=== PATIENT | male | born 1965 | race African-American/Black ===

== ENCOUNTER 2020-01-20 16:12 | Inpatient (IN) ==
[2020-01-20] MEDS ORDERED: ONDANSETRON 4 MG/2 ML VIAL ONE (18:30)
[2020-01-20] MEDS ORDERED: HYDROmorphone 2 MG/1 ML VIAL ONE (18:31)
[2020-01-20] MEDS ORDERED: HYDROmorphone 2 MG/1 ML VIAL IV STA (18:32)
[2020-01-20] MEDS ORDERED: ONDANSETRON 4 MG/2 ML VIAL IV STA (18:32)
[2020-01-20] MEDS ORDERED: FLUCONAZOLE INJ 100 MG in IV BAG 1 EACH IV ONE (18:32)
[2020-01-20] MEDS ORDERED: SODIUM CHLORIDE 0.9% 1,000 ML IV STA (18:32)
[2020-01-20 18:58] LABS: Basophils % 0.5 % (0.0-0.8); Eosinophils % 0.5 % (0.00-10.9); Hemoglobin 12.8 GM/DL (14.0-18.0); Immature Granulocytes Absolute 0.08 #; Lymphocytes # 0.3 10*3/uL (1.4-4.0); Lymphocytes % 3.5 % (21.2-54.2); Mean Corpuscular HGB Conc 33.7 GM/DL (32-36); Mean Corpuscular Volume 96.9 FL (87-102); Mean Platelet Volume 7.8 FL (9.6-12.0); Neutrophils % 81.5 % (38.7-73.9); Platelet Count 448 T/CUMM (130-400); Red Blood Count 3.92 MC/CUMM (3.8-5.5); White Blood Count 7.9 T/CUMM (4-12)
[2020-01-20 19:18] LABS: Alanine Aminotransferase 20 U/L (16-61); Alkaline Phosphatase 101 U/L (45-117); Amylase 120 U/L (25-115); Aspartate Amino Transferase 14 U/L (0-37); Bilirubin,Total < 0.39 MG/DL (0.2-1.0); Blood Urea Nitrogen 28 MG/DL (7-18); Calcium 10.1 MG/DL (8.5-10.1); Estimated Glom Filtration Rate 82 ML/MIN; Glucose 117 MG/DL (74-106); Osmolality,Calculated 253.8 MOS/KG (273-304); Total Protein 8.2 G/DL (6.4-8.3)
[2020-01-20 20:08] LABS: Band Neutrophils 2 % (0-10); Eosinophils 1 % (0-10); Lymphocytes 8 % (20-55); Myelocytes 1 %; Segmented Neutrophils 73 % (50-85); Total Cells Counted 100
[2020-01-20 20:09] LABS: Anisocytosis Slight; Hypochromasia 2+; Macrocytosis 1+
[2020-01-20 20:10] LABS: Toxic Granulation 1+
[2020-01-20 20:11] LABS: Platelet Estimate Normal
[2020-01-20] MEDS ORDERED: PHENOL 1.4% THROAT SPRAY 177 ML BOTTLE PO PRN (20:35)
[2020-01-20] MEDS: SODIUM CHLORIDE 0.9% 1,000 ML IV SCH (21:05)
[2020-01-20] MEDS: cefTRIAXone 1,000 MG in SYRINGE 1 EACH IV SCH (21:15)
[2020-01-20] MEDS: POTASSIUM CHLORIDE RIDER 10 MEQ in PREMIX 1 EACH IV PRN ×3 (21:31→23:50)
[2020-01-20 21:41] LABS: Calcium 8.7 MG/DL (8.5-10.1); Osmolality,Calculated 261.1 MOS/KG (273-304)
[2020-01-20 22:42] LABS: Apearance,Urine CLOUDY (Clear); Bilirubin,Urine Negative (Negative); Blood, Urine Negative (Negative); Glucose,Urine (UA) Negative (Negative); Hyaline Casts,Urine 56 /LPF (0-3); Ketones,Urine 5 mg/dL (Negative); Mucus,Urine Occasional /LPF (Occasional); Nitrite,Urine Negative (Negative); Protein,Urine Negative; RBC,Urine 1 /HPF (0-4); Squamous Epithelial Cell,Urine Occasional /HPF (0-10); Urine Color Yellow (Yellow); Urine Specific Gravity 1.017 (1.001-1.035); Urine Urobilinogen < 2.0 EU/DL (0.2-1.0); WBC,Urine 1 /HPF (0-6)
[2020-01-21] MEDS: POTASSIUM CHLORIDE RIDER 10 MEQ in PREMIX 1 EACH IV PRN (00:51)
[2020-01-21 01:03] LABS: Calcium 8.6 MG/DL (8.5-10.1); Osmolality,Calculated 254.5 MOS/KG (273-304)
[2020-01-21 05:24] LABS: Basophils % 0.5 % (0.0-0.8); Eosinophils # 0.1 10*3/uL (0.0-0.87); Eosinophils % 1.4 % (0.00-10.9); Hematocrit 29.7 VOL% (42.0-52.0); Immature Granulocytes % 1.1 %; Immature Granulocytes Absolute 0.05 #; Lymphocytes # 0.3 10*3/uL (1.4-4.0); Lymphocytes % 7.4 % (21.2-54.2); Mean Corpuscular HGB Conc 33.7 GM/DL (32-36); Mean Corpuscular Volume 97.7 FL (87-102); Monocytes % 20.3 % (1.7-12.7); Neutrophils % 69.3 % (38.7-73.9); Platelet Count 372 T/CUMM (130-400); Red Blood Count 3.04 MC/CUMM (3.8-5.5); Red Cell Distribution Width 12.2 % (9.3-17.3); White Blood Count 4.4 T/CUMM (4-12)
[2020-01-21 05:45] LABS: Band Neutrophils 1 % (0-10); Eosinophils 1 % (0-10); Lymphocytes 6 % (20-55); Segmented Neutrophils 73 % (50-85); Total Cells Counted 100
[2020-01-21 05:46] LABS: Hypochromasia 1+; Platelet Estimate Adequate
[2020-01-21 05:54] LABS: Calcium 8.5 MG/DL (8.5-10.1); Osmolality,Calculated 260.9 MOS/KG (273-304)
[2020-01-21] MEDS: SODIUM CHLORIDE 0.9% 1,000 ML IV SCH ×2 (08:25→19:50)
[2020-01-21] MEDS ORDERED: amLODIPine 5 MG TABLET PO SCH (09:00)
[2020-01-21 09:04] LABS: Calcium 8.4 MG/DL (8.5-10.1); Osmolality,Calculated 258.1 MOS/KG (273-304)
[2020-01-21] MEDS: CETIRIZINE 10 MG TABLET PO SCH (10:24)
[2020-01-21] MEDS: ASPIRIN EC 81 MG TABLET PO SCH (10:24)
[2020-01-21 14:19] LABS: Calcium 8.4 MG/DL (8.5-10.1); Osmolality,Calculated 258.9 MOS/KG (273-304)
[2020-01-21 17:40] LABS: Calcium 8.2 MG/DL (8.5-10.1); Osmolality,Calculated 256.1 MOS/KG (273-304)
[2020-01-21] MEDS: cefTRIAXone 1,000 MG in SYRINGE 1 EACH IV SCH (20:29)
[2020-01-21] MEDS: FLUCONAZOLE INJ 100 MG in IV BAG 1 EACH IV SCH (20:30)
[2020-01-22 05:33] LABS: Basophils % 0.7 % (0.0-0.8); Eosinophils # 0.2 10*3/uL (0.0-0.87); Eosinophils % 2.5 % (0.00-10.9); Hematocrit 30.6 VOL% (42.0-52.0); Hemoglobin 9.8 GM/DL (14.0-18.0); Immature Granulocytes % 0.8 %; Immature Granulocytes Absolute 0.05 #; Lymphocytes # 0.3 10*3/uL (1.4-4.0); Lymphocytes % 4.6 % (21.2-54.2); Mean Corpuscular Volume 100.7 FL (87-102); Neutrophils % 74.4 % (38.7-73.9); Platelet Count 364 T/CUMM (130-400); Red Blood Count 3.04 MC/CUMM (3.8-5.5); Red Cell Distribution Width 11.9 % (9.3-17.3); White Blood Count 5.9 T/CUMM (4-12)
[2020-01-22 05:43] LABS: INR 1.5; PT Patient Result 15.7 SECS (9.6-12.2)
[2020-01-22 06:09] LABS: Band Neutrophils 8 % (0-10); Eosinophils 4 % (0-10); Lymphocytes 2 % (20-55); Segmented Neutrophils 73 % (50-85); Total Cells Counted 100
[2020-01-22 06:10] LABS: Anisocytosis 1+; Hypochromasia Slight; Macrocytosis Slight; Platelet Estimate Normal
[2020-01-22 07:00] LABS: Alanine Aminotransferase 18 U/L (16-61); Albumin 2.4 G/DL (3.4-5.0); Alkaline Phosphatase 74 U/L (45-117); Aspartate Amino Transferase 16 U/L (0-37); Bilirubin,Total < 0.39 MG/DL (0.2-1.0); Blood Urea Nitrogen 7 MG/DL (7-18); Estimated Glom Filtration Rate 144 ML/MIN; Glucose 78 MG/DL (74-106); Osmolality,Calculated 262.4 MOS/KG (273-304); Total Protein 5.7 G/DL (6.4-8.3)
[2020-01-22] MEDS: SODIUM CHLORIDE 0.9% 1,000 ML IV SCH ×2 (07:14→17:47)
[2020-01-22] MEDS ORDERED: LACTATED RINGERS 1,000 ML IV SCH (08:00)
[2020-01-22] MEDS ORDERED: propofoL 200 MG/20 ML VIAL IV ONE (09:00)
[2020-01-22] MEDS ORDERED: LIDOCAINE 2% 5 ML VIAL ONE (09:00)
[2020-01-22] MEDS: ASPIRIN EC 81 MG TABLET PO SCH (09:45)
[2020-01-22] MEDS: CETIRIZINE 10 MG TABLET PO SCH (09:45)
[2020-01-22] MEDS: POTASSIUM CHLORIDE RIDER 10 MEQ in PREMIX 1 EACH IV PRN ×3 (17:43→20:31)
[2020-01-22] MEDS: MORPHINE 4 MG/1 ML VIAL IV PRN (17:44)
[2020-01-22] MEDS: FLUCONAZOLE INJ 100 MG in IV BAG 1 EACH IV SCH (20:27)
[2020-01-22] MEDS: cefTRIAXone 1,000 MG in SYRINGE 1 EACH IV SCH (20:28)
[2020-01-23 06:34] LABS: Calcium 8.2 MG/DL (8.5-10.1); Osmolality,Calculated 262.2 MOS/KG (273-304); Prealbumin 9.6 MG/DL (20-40)
[2020-01-23] MEDS: POTASSIUM CHLORIDE RIDER 10 MEQ in PREMIX 1 EACH IV PRN ×5 (07:31→12:16)
[2020-01-23] MEDS: ASPIRIN EC 81 MG TABLET PO SCH (08:49)
[2020-01-23] MEDS: CETIRIZINE 10 MG TABLET PO SCH (08:51)
[2020-01-23] MEDS ORDERED: MAGNESIUM SULF RIDER 4 GM in PREMIX 1 EACH IV ONE (12:46)
[2020-01-23] MEDS: SODIUM CHLORIDE 0.9% 1,000 ML IV SCH (16:42)
[2020-01-23] MEDS: cefTRIAXone 1,000 MG in SYRINGE 1 EACH IV SCH (20:20)
[2020-01-24] MEDS: CETIRIZINE 10 MG TABLET PO SCH (08:58)
[2020-01-24] MEDS: ASPIRIN EC 81 MG TABLET PO SCH (08:58)
[2020-01-24] MEDS: cefTRIAXone 1,000 MG in SYRINGE 1 EACH IV SCH (20:27)
[2020-01-24] MEDS: MORPHINE 4 MG/1 ML VIAL IV PRN (20:27)
[2020-01-25] MEDS: ASPIRIN EC 81 MG TABLET PO SCH (08:56)
[2020-01-25] MEDS: CETIRIZINE 10 MG TABLET PO SCH (08:57)
[2020-01-25] MEDS ORDERED: MAGNESIUM SULF RIDER 4 GM in PREMIX 1 EACH IV PRN (09:14)
[2020-01-25] MEDS ORDERED: MAGNESIUM SULF RIDER 2 GM in PREMIX 1 EACH IV PRN (09:14)
[2020-01-25 09:16] LABS: Basophils % 0.5 % (0.0-0.8); Eosinophils # 0.2 10*3/uL (0.0-0.87); Hemoglobin 9.3 GM/DL (14.0-18.0); Immature Granulocytes % 0.5 %; Immature Granulocytes Absolute 0.04 #; Lymphocytes # 0.3 10*3/uL (1.4-4.0); Lymphocytes % 3.9 % (21.2-54.2); Mean Corpuscular HGB Conc 32.1 GM/DL (32-36); Mean Corpuscular Volume 101.8 FL (87-102); Mean Platelet Volume 7.8 FL (9.6-12.0); Monocytes % 9.3 % (1.7-12.7); Neutrophils % 82.8 % (38.7-73.9); Platelet Count 332 T/CUMM (130-400); Red Blood Count 2.85 MC/CUMM (3.8-5.5); Red Cell Distribution Width 12.4 % (9.3-17.3); White Blood Count 7.9 T/CUMM (4-12)
[2020-01-25 09:39] LABS: Eosinophils 5 % (0-10); Hypochromasia 1+; Lymphocytes 4 % (20-55); Platelet Estimate Adequate; Segmented Neutrophils 85 % (50-85); Total Cells Counted 100
[2020-01-25 09:40] LABS: Macrocytosis Slight
[2020-01-25 09:41] LABS: Calcium 8.2 MG/DL (8.5-10.1); Osmolality,Calculated 264.2 MOS/KG (273-304)
[2020-01-25] MEDS: cefTRIAXone 1,000 MG in SYRINGE 1 EACH IV SCH (20:45)
[2020-01-26 05:48] LABS: Calcium 8.5 MG/DL (8.5-10.1); Osmolality,Calculated 257.7 MOS/KG (273-304)
[2020-01-26] MEDS ORDERED: MAGNESIUM SULF RIDER 2 GM in PREMIX 1 EACH IV ONE (09:25)
[2020-01-26] MEDS: ASPIRIN EC 81 MG TABLET PO SCH (10:24)
[2020-01-26] MEDS: CETIRIZINE 10 MG TABLET PO SCH (10:25)
[2020-01-26 14:12] VITALS: BP 121/62
== END 2020-01-26 14:06 | disposition home or self-care (01) | DRG 115 ==
LOC: N.ED 16:12 → N.EDINP 19:53 → SUPCPDRO 19:53 → N.4E 20:21
PROVIDERS: ADMIT Internal Medicine; ATTEND Internal Medicine
PROC: EGDWPEG (ICD-10-PCS; 2020-01-22 10:35)

== ENCOUNTER 2022-01-06 14:54 | Inpatient (IN) ==
[2022-01-06 18:32] LABS: Basophils % 0.2 % (0.0-0.8); Eosinophils % 0.5 % (0.00-10.9); Hematocrit 36.9 VOL% (42.0-52.0); Immature Granulocytes % 0.5 %; Immature Granulocytes Absolute 0.04 #; Lymphocytes # 0.4 10*3/uL (1.4-4.0); Lymphocytes % 4.4 % (21.2-54.2); Mean Corpuscular HGB Conc 35.2 GM/DL (32-36); Mean Corpuscular Volume 98.7 FL (87-102); Mean Platelet Volume 8.2 FL (9.6-12.0); Monocytes % 9.1 % (1.7-12.7); Neutrophils % 85.3 % (38.7-73.9); Platelet Count 258 T/CUMM (130-400); Red Blood Count 3.74 MC/CUMM (3.8-5.5); Red Cell Distribution Width 11.8 % (9.3-17.3); White Blood Count 8.3 T/CUMM (4-12)
[2022-01-06] MEDS ORDERED: SODIUM CHLORIDE 0.9% 1,000 ML IV STA (18:37)
[2022-01-06] MEDS ORDERED: MORPHINE 2 MG/1 ML SYRINGE IV STA (18:39)
[2022-01-06] MEDS ORDERED: ONDANSETRON 4 MG/2 ML VIAL IV ONE (18:39)
[2022-01-06 18:55] LABS: Albumin 3.5 G/DL (3.4-5.0); Bilirubin,Total 0.5 MG/DL (0.20-1.00); Calcium 9.2 MG/DL (8.5-10.1); Osmolality,Calculated 235.5 MOS/KG (273-304); Potassium 4.2 MMOL/L (3.5-5.1); Total Protein 7.2 G/DL (6.4-8.2)
[2022-01-06 19:01] LABS: Eosinophils 2 % (0-10); Lymphocytes 4 % (20-55); Segmented Neutrophils 89 % (50-85); Total Cells Counted 100
[2022-01-06 19:10] LABS: Burr Cells Slight; Platelet Estimate Adequate
[2022-01-06] MEDS ORDERED: ACETAMINOPHEN 325 MG TABLET PO PRN (19:44)
[2022-01-06] MEDS ORDERED: hydrALAZINE 20 MG/1 ML VIAL IV PRN (19:44)
[2022-01-06] MEDS ORDERED: ALUMINUM/MAGNES/SIMETH MAX STR 30 ML UDCUP PO PRN (19:44)
[2022-01-06] MEDS ORDERED: BISACODYL 5 MG TABLET PO PRN (19:44)
[2022-01-06] MEDS ORDERED: DOCUSATE SODIUM 100 MG CAPSULE PO PRN (19:44)
[2022-01-06] MEDS ORDERED: MORPHINE 2 MG/1 ML SYRINGE IV PRN (19:44)
[2022-01-06] MEDS ORDERED: GLUCAGON 1 MG VIAL IM PRN (19:44)
[2022-01-06] MEDS ORDERED: DEXTROSE 10% 250 ML BAG IV PRN (19:44)
[2022-01-06] MEDS ORDERED: ONDANSETRON 4 MG/2 ML VIAL IV PRN (19:44)
[2022-01-06] MEDS: SODIUM CHLORIDE 0.9% 1,000 ML IV SCH (21:00)
[2022-01-06 21:30] LABS: Bilirubin,Urine Negative (Negative); Blood, Urine Negative (Negative); Glucose,Urine (UA) Negative (Negative); Ketones,Urine 20 mg/dL (Negative); Mucus,Urine Occasional /LPF (Occasional); Nitrite,Urine Negative (Negative); Protein,Urine Negative; RBC,Urine <1 /HPF (0-4); Squamous Epithelial Cell,Urine Occasional /HPF (0-10); Urine Appearance Slightly Hazy (Clear); Urine Color Yellow (Yellow); Urine Specific Gravity 1.012 (1.001-1.035); Urine Urobilinogen < 2.0 EU/DL (<2.0)
[2022-01-06] MEDS: NICOTINE 21 MG/24 HR PATCH TRANSDERM PRN (21:32)
[2022-01-06 21:45] LABS: Barbiturates Screen,Urine Negative (Negative); Benzodiazepines Screen,Urine Negative (Negative); Cannabinoid Screen,Urine Positive (Negative); Opiate Screen,Urine Positive (Negative); Phencyclidine Screen,Urine Negative (Negative)
[2022-01-07 03:40] LABS: Basophils % 0.6 % (0.0-0.8); Eosinophils # 0.1 10*3/uL (0.0-0.87); Hematocrit 33.3 VOL% (42.0-52.0); Hemoglobin 11.6 GM/DL (14.0-18.0); Immature Granulocytes % 0.6 %; Immature Granulocytes Absolute 0.04 #; Lymphocytes # 0.4 10*3/uL (1.4-4.0); Mean Corpuscular HGB Conc 34.8 GM/DL (32-36); Mean Corpuscular Volume 99.4 FL (87-102); Mean Platelet Volume 8.1 FL (9.6-12.0); Monocytes % 11.8 % (1.7-12.7); Platelet Count 235 T/CUMM (130-400); Red Blood Count 3.35 MC/CUMM (3.8-5.5); Red Cell Distribution Width 11.8 % (9.3-17.3); White Blood Count 6.9 T/CUMM (4-12)
[2022-01-07 04:12] LABS: Calcium 8.2 MG/DL (8.5-10.1); Osmolality,Calculated 251.2 MOS/KG (273-304); Potassium 3.7 MMOL/L (3.5-5.1); Thyroid Stimulating Hormone 0.469 uIU/ml (0.358-3.74)
[2022-01-07 04:26] LABS: Calcium 8.2 MG/DL (8.5-10.1); Osmolality,Calculated 249.4 MOS/KG (273-304); Potassium 3.6 MMOL/L (3.5-5.1); Risk Ratio 2.38
[2022-01-07] MEDS: SODIUM CHLORIDE 0.9% 1,000 ML IV SCH ×3 (07:22→22:16)
[2022-01-07] MEDS ORDERED: MAGNESIUM SULF RIDER 2 GM/50 ML PREMIX IV ONE (09:00)
[2022-01-07] MEDS: PANTOPRAZOLE 40 MG TABLET PO SCH (09:33)
[2022-01-07] MEDS: ENOXAPARIN 40 MG/0.4 ML SYRINGE SUBCUT SCH (09:33)
[2022-01-07] MEDS ORDERED: ALBUTEROL 2.5 MG/3 ML NEB RESP TX PRN (11:53)
[2022-01-07] MEDS: CETIRIZINE 10 MG TABLET PO SCH (12:15)
[2022-01-07] MEDS: predniSONE 20 MG TABLET PO SCH ×2 (12:15→20:27)
[2022-01-07] MEDS: METOPROLOL TARTRATE 25 MG TABLET PO SCH (12:15)
[2022-01-07] MEDS: POTASSIUM CHLORIDE 10 MEQ TABLET PO SCH (12:15)
[2022-01-07] MEDS: ASPIRIN EC 81 MG TABLET PO SCH (12:15)
[2022-01-07] MEDS: MELOXICAM 7.5 MG TABLET PO SCH (13:56)
[2022-01-07] MEDS: NICOTINE 21 MG/24 HR PATCH TRANSDERM PRN (20:32)
[2022-01-08] MEDS ORDERED: MORPHINE 4 MG/1 ML VIAL IV PRN (01:30)
[2022-01-08 02:47] VITALS: BP 128/72
[2022-01-08 04:22] LABS: Hematocrit 34.3 VOL% (42.0-52.0); Hemoglobin 11.8 GM/DL (14.0-18.0); Immature Granulocytes % 0.6 %; Immature Granulocytes Absolute 0.03 #; Lymphocytes # 0.2 10*3/uL (1.4-4.0); Lymphocytes % 3.6 % (21.2-54.2); Mean Corpuscular HGB Conc 34.4 GM/DL (32-36); Mean Platelet Volume 8.3 FL (9.6-12.0); Monocytes % 4.8 % (1.7-12.7); Platelet Count 262 T/CUMM (130-400); Red Blood Count 3.43 MC/CUMM (3.8-5.5); Red Cell Distribution Width 11.9 % (9.3-17.3)
[2022-01-08 04:34] LABS: Calcium 8.2 MG/DL (8.5-10.1); Osmolality,Calculated 260.7 MOS/KG (273-304); Potassium 3.8 MMOL/L (3.5-5.1)
[2022-01-08 04:47] LABS: Hypochromia Slight; Lymphocytes 5 % (20-55); Segmented Neutrophils 90 % (50-85); Total Cells Counted 100
[2022-01-08 04:48] LABS: Macrocytosis Slight; Platelet Estimate Normal
[2022-01-08] MEDS: SODIUM CHLORIDE 0.9% 1,000 ML IV SCH (06:39)
[2022-01-08] MEDS ORDERED: MAGNESIUM SULF RIDER 2 GM/50 ML PREMIX IV ONE (07:13)
[2022-01-08] MEDS: ENOXAPARIN 40 MG/0.4 ML SYRINGE SUBCUT SCH (08:29)
[2022-01-08] MEDS: MELOXICAM 7.5 MG TABLET PO SCH (08:30)
[2022-01-08] MEDS: CETIRIZINE 10 MG TABLET PO SCH (08:30)
[2022-01-08] MEDS: METOPROLOL TARTRATE 25 MG TABLET PO SCH (08:30)
[2022-01-08] MEDS: PANTOPRAZOLE 40 MG TABLET PO SCH (08:30)
[2022-01-08] MEDS: ASPIRIN EC 81 MG TABLET PO SCH (08:30)
[2022-01-08] MEDS: POTASSIUM CHLORIDE 10 MEQ TABLET PO SCH (08:30)
[2022-01-08] MEDS: predniSONE 20 MG TABLET PO SCH (08:30)
[2022-01-08] MEDS: NICOTINE 21 MG/24 HR PATCH TRANSDERM PRN (12:56)
== END 2022-01-08 13:40 | disposition home or self-care (01) | DRG 426 ==
LOC: N.ED 14:54 → N.EDINP 19:44 → N.CC 01-07 00:24
PROVIDERS: ADMIT Internal Medicine; ATTEND Internal Medicine

== ENCOUNTER 2022-04-06 19:26 | Observation (INO) ==
[2022-04-06] MEDS ORDERED: SODIUM CHLORIDE 0.9% 1,000 ML IV STA (19:59)
[2022-04-06 20:30] LABS: Albumin 3.9 G/DL (3.4-5.0); Bilirubin,Total 0.4 MG/DL (0.20-1.00); Calcium 9.1 MG/DL (8.5-10.1); Osmolality,Calculated 245.6 MOS/KG (273-304); Potassium 3.9 MMOL/L (3.5-5.1); Total Protein 7.3 G/DL (6.4-8.2)
[2022-04-06] MEDS ORDERED: PANTOPRAZOLE 40 MG VIAL IV STA (20:43)
[2022-04-06 21:06] LABS: Basophils % 0.6 % (0.0-0.8); Eosinophils # 0.1 10*3/uL (0.0-0.87); Hematocrit 37.2 VOL% (42.0-52.0); Immature Granulocytes % 0.3 %; Immature Granulocytes Absolute 0.02 #; Lymphocytes # 0.3 10*3/uL (1.4-4.0); Lymphocytes % 5.3 % (21.2-54.2); Mean Corpuscular HGB Conc 32.3 GM/DL (32-36); Mean Corpuscular Volume 88.8 FL (87-102); Mean Platelet Volume 9.1 FL (9.6-12.0); Monocytes # 0.6 10*3/uL (0.11-0.8); Monocytes % 9.8 % (1.7-12.7); Platelet Count 221 T/CUMM (130-400); Red Blood Count 4.19 MC/CUMM (3.8-5.5); Red Cell Distribution Width 15.8 % (9.3-17.3); White Blood Count 6.3 T/CUMM (4-12)
[2022-04-06] MEDS ORDERED: ACETAMINOPHEN 325 MG TABLET PO PRN (22:25)
[2022-04-06] MEDS ORDERED: ONDANSETRON 4 MG/2 ML VIAL IV PRN (22:25)
[2022-04-06] MEDS ORDERED: GLUCAGON 1 MG VIAL IM PRN (22:25)
[2022-04-06] MEDS ORDERED: DEXTROSE 10% 250 ML BAG IV PRN (22:36)
[2022-04-06] MEDS: ENOXAPARIN 40 MG/0.4 ML SYRINGE SUBCUT SCH (23:21)
[2022-04-06] MEDS: SODIUM CHLORIDE 0.9% 1,000 ML IV SCH (23:21)
[2022-04-07] MEDS ORDERED: POTASSIUM CHLORIDE RIDER 10 MEQ/100 ML PREMIX IV PRN (00:26)
[2022-04-07] MEDS ORDERED: MAGNESIUM SULF RIDER 2 GM/50 ML PREMIX IV PRN (00:26)
[2022-04-07] MEDS ORDERED: POTASSIUM CHLORIDE 20 MEQ TABLET PO PRN (00:26)
[2022-04-07] MEDS ORDERED: MAGNESIUM SULF RIDER 4 GM/100 ML PREMIX IV PRN (00:26)
[2022-04-07 06:17] LABS: Basophils % 0.6 % (0.0-0.8); Eosinophils # 0.1 10*3/uL (0.0-0.87); Hematocrit 37.6 VOL% (42.0-52.0); Hemoglobin 12.3 GM/DL (14.0-18.0); Immature Granulocytes % 0.3 %; Immature Granulocytes Absolute 0.02 #; Lymphocytes # 0.3 10*3/uL (1.4-4.0); Lymphocytes % 5.5 % (21.2-54.2); Mean Corpuscular HGB Conc 32.7 GM/DL (32-36); Mean Corpuscular Volume 87.6 FL (87-102); Mean Platelet Volume 8.5 FL (9.6-12.0); Monocytes # 0.6 10*3/uL (0.11-0.8); Monocytes % 9.7 % (1.7-12.7); Neutrophils % 82.9 % (38.7-73.9); Platelet Count 251 T/CUMM (130-400); Red Blood Count 4.29 MC/CUMM (3.8-5.5); Red Cell Distribution Width 15.2 % (9.3-17.3); White Blood Count 6.2 T/CUMM (4-12)
[2022-04-07 06:43] LABS: Albumin 3.5 G/DL (3.4-5.0); Bilirubin,Total 0.6 MG/DL (0.20-1.00); Calcium 8.8 MG/DL (8.5-10.1); Osmolality,Calculated 256.8 MOS/KG (273-304); Potassium 3.2 MMOL/L (3.5-5.1); Total Protein 6.8 G/DL (6.4-8.2)
[2022-04-07] MEDS: DOCUSATE SODIUM 100 MG CAPSULE PO SCH ×2 (09:20→20:30)
[2022-04-07] MEDS: PANTOPRAZOLE 40 MG VIAL IV SCH (09:20)
[2022-04-07] MEDS: POTASSIUM CHLORIDE RIDER 10 MEQ/100 ML PREMIX IV SCH ×3 (09:20→11:26)
[2022-04-07] MEDS: SODIUM CHLORIDE 0.9% 1,000 ML IV SCH ×2 (09:24→20:09)
[2022-04-07] MEDS: ENOXAPARIN 40 MG/0.4 ML SYRINGE SUBCUT SCH (20:30)
[2022-04-08] MEDS: SODIUM CHLORIDE 0.9% 1,000 ML IV SCH (06:12)
[2022-04-08] MEDS ORDERED: POTASSIUM CHLORIDE 20 MEQ TABLET PO ONE (10:45)
[2022-04-08] MEDS: DOCUSATE SODIUM 100 MG CAPSULE PO SCH (11:41)
[2022-04-08] MEDS: PANTOPRAZOLE 40 MG VIAL IV SCH (11:41)
[2022-04-08 12:13] VITALS: BP 139/97
== END 2022-04-08 14:30 | disposition home or self-care (01) ==
LOC: EDUNIT# → EDBD → N.EDINP 19:26 → N.ED 19:26 → SUATTDRO 23:37 → N.EDINP 04-07 00:35 → N.5E 04-07 01:03
PROVIDERS: ADMIT Internal Medicine; ATTEND Internal Medicine

== ENCOUNTER 2022-12-31 11:29 | Inpatient (IN) ==
[2022-12-31 14:55] LABS: Basophils % 0.4 % (0.0-0.8); Eosinophils % 0.4 % (0.00-10.9); Hematocrit 34.5 VOL% (42.0-52.0); Hemoglobin 11.5 GM/DL (14.0-18.0); Lymphocytes # 0.2 10*3/uL (1.4-4.0); Lymphocytes % 2.1 % (21.2-54.2); Mean Corpuscular HGB Conc 33.3 GM/DL (32-36); Mean Corpuscular Volume 87.6 FL (87-102); Mean Platelet Volume 8.5 FL (9.6-12.0); Monocytes # 0.7 10*3/uL (0.11-0.8); Monocytes % 7.4 % (1.7-12.7); Neutrophils % 89.5 % (38.7-73.9); Platelet Count 306 T/CUMM (130-400); Red Blood Count 3.94 MC/CUMM (3.8-5.5); Red Cell Distribution Width 16.6 % (9.3-17.3); White Blood Count 9.07 T/CUMM (4-12)
[2022-12-31 15:11] LABS: Bilirubin,Total 0.6 MG/DL (0.20-1.00); Calcium 9.8 MG/DL (8.5-10.1); Osmolality,Calculated 260.7 MOS/KG (273-304); Potassium 3.7 MMOL/L (3.5-5.1); Total Protein 7.3 G/DL (6.4-8.2)
[2022-12-31 15:23] LABS: Hypochromia 2+; Lymphocytes 1 % (20-55); Platelet Estimate Adequate; Total Cells Counted 100
[2022-12-31 15:24] LABS: Microcytosis Slight
[2022-12-31 17:33] LABS: Mucus,Urine Occasional /LPF (Occasional); RBC,Urine 2 /HPF (0-4); Squamous Epithelial Cell,Urine Occasional /HPF (0-10)
[2022-12-31 17:35] LABS: Glucose,Urine (UA) Negative (Negative); Protein,Urine Negative (Negative); Urine Appearance Clear (Clear); Urine Color Yellow (Yellow); Urine pH 8.5 (4.5-8.0)
[2022-12-31 17:36] LABS: Bilirubin,Urine Negative (Negative); Blood, Urine Negative (Negative); Ketones,Urine 15 mg/dL (Negative); Nitrite,Urine Negative (Negative); Urine Urobilinogen 0.2 eU/dL (<2.0)
[2022-12-31] MEDS ORDERED: ONDANSETRON 4 MG/2 ML VIAL IV PRN (19:23)
[2022-12-31] MEDS ORDERED: DOCUSATE SODIUM 100 MG CAPSULE PO PRN (19:23)
[2022-12-31] MEDS ORDERED: ACETAMINOPHEN 325 MG TABLET PO PRN (19:23)
[2022-12-31] MEDS ORDERED: SIMETHICONE CHEW 125 MG TABLET PO ONE (20:00)
[2022-12-31] MEDS: DEXTROSE 5% NACL 0.9% 1,000 ML IV SCH (23:03)
[2022-12-31] MEDS: HEPARIN 5,000 UNIT/1 ML VIAL SUBCUT SCH (23:05)
[2023-01-01 04:53] LABS: Basophils % 0.5 % (0.0-0.8); Eosinophils # 0.1 10*3/uL (0.0-0.87); Eosinophils % 1.1 % (0.00-10.9); Hematocrit 34.5 VOL% (42.0-52.0); Immature Granulocytes % 0.4 %; Immature Granulocytes Absolute 0.03 #; Lymphocytes # 0.2 10*3/uL (1.4-4.0); Lymphocytes % 2.6 % (21.2-54.2); Mean Corpuscular HGB Conc 31.9 GM/DL (32-36); Mean Corpuscular Volume 89.4 FL (87-102); Mean Platelet Volume 8.2 FL (9.6-12.0); Monocytes # 0.5 10*3/uL (0.11-0.8); Monocytes % 7.1 % (1.7-12.7); Neutrophils % 88.3 % (38.7-73.9); Platelet Count 298 T/CUMM (130-400); Red Blood Count 3.86 MC/CUMM (3.8-5.5); Red Cell Distribution Width 16.8 % (9.3-17.3); White Blood Count 7.61 T/CUMM (4-12)
[2023-01-01 05:13] LABS: Albumin 3.6 G/DL (3.4-5.0); Bilirubin,Total 0.8 MG/DL (0.20-1.00); Calcium 8.9 MG/DL (8.5-10.1); Osmolality,Calculated 256.8 MOS/KG (273-304); Potassium 3.3 MMOL/L (3.5-5.1)
[2023-01-01 05:32] LABS: Band Neutrophils 1 % (0-10); Lymphocytes 3 % (20-55); Platelet Estimate Adequate; Total Cells Counted 100
[2023-01-01 05:33] LABS: Anisocytosis Slight
[2023-01-01] MEDS ORDERED: POTASSIUM CHLORIDE RIDER 10 MEQ/100 ML PREMIX IV PRN (05:38)
[2023-01-01] MEDS ORDERED: POTASSIUM BICARB EFFERVESCENT 20 MEQ TAB.EFF PO ONE (08:54)
[2023-01-01] MEDS ORDERED: PANTOPRAZOLE 40 MG VIAL IV SCH (09:00)
[2023-01-01] MEDS: HEPARIN 5,000 UNIT/1 ML VIAL SUBCUT SCH ×2 (10:27→21:47)
[2023-01-01 10:37] LABS: Phosphorous 3.3 MG/DL (2.5-4.9)
[2023-01-01] MEDS: DEXTROSE 5% NACL 0.9% 1,000 ML IV SCH (17:32)
[2023-01-01] MEDS: PANTOPRAZOLE 40 MG VIAL IV SCH (21:01)
[2023-01-02 04:46] LABS: Basophils % 0.6 % (0.0-0.8); Eosinophils # 0.1 10*3/uL (0.0-0.87); Eosinophils % 1.7 % (0.00-10.9); Hematocrit 31.2 VOL% (42.0-52.0); Hemoglobin 10.3 GM/DL (14.0-18.0); Immature Granulocytes % 0.1 %; Immature Granulocytes Absolute 0.01 #; Lymphocytes # 0.2 10*3/uL (1.4-4.0); Lymphocytes % 3.1 % (21.2-54.2); Mean Corpuscular Volume 87.4 FL (87-102); Mean Platelet Volume 8.2 FL (9.6-12.0); Monocytes # 0.6 10*3/uL (0.11-0.8); Monocytes % 8.5 % (1.7-12.7); Platelet Count 263 T/CUMM (130-400); Red Blood Count 3.57 MC/CUMM (3.8-5.5); Red Cell Distribution Width 16.2 % (9.3-17.3); White Blood Count 7.03 T/CUMM (4-12)
[2023-01-02 05:14] LABS: Eosinophils 3 % (0-10); Hypochromia Slight; Lymphocytes 4 % (20-55); Platelet Estimate Increased; Total Cells Counted 100
[2023-01-02 05:17] LABS: Calcium 8.6 MG/DL (8.5-10.1); Osmolality,Calculated 251.2 MOS/KG (273-304); Potassium 3.6 MMOL/L (3.5-5.1)
[2023-01-02] MEDS: DEXTROSE 5% NACL 0.9% 1,000 ML IV SCH ×2 (06:03→21:17)
[2023-01-02] MEDS: LACTATED RINGERS 1,000 ML IV SCH (08:17)
[2023-01-02] MEDS ORDERED: MIDAZOLAM 2 MG/2 ML VIAL ONE (08:34)
[2023-01-02] MEDS ORDERED: DEXAMETHASONE 4 MG/1 ML VIAL ONE (08:40)
[2023-01-02] MEDS ORDERED: propofoL 200 MG/20 ML VIAL IV ONE (08:41)
[2023-01-02] MEDS ORDERED: LIDOCAINE 2% 5 ML VIAL ONE (08:41)
[2023-01-02] MEDS ORDERED: methylPREDNISolone SOD SUC 125 MG/2 ML VIAL ONE (08:49)
[2023-01-02] MEDS ORDERED: KETAMINE 500 MG/10 ML VIAL ONE (09:07)
[2023-01-02] MEDS: HEPARIN 5,000 UNIT/1 ML VIAL SUBCUT SCH ×2 (10:39→21:08)
[2023-01-02] MEDS: PANTOPRAZOLE 40 MG VIAL IV SCH ×2 (10:40→21:59)
[2023-01-02] MEDS ORDERED: MAGNESIUM SULF RIDER 2 GM/50 ML PREMIX IV ONE (11:48)
[2023-01-02] MEDS: BENZOCAINE/MENTHOL LOZENGE 18/BOX PO PRN ×2 (12:00→14:00)
[2023-01-02] MEDS: NICOTINE 21 MG/24 HR PATCH TRANSDERM PRN (15:18)
[2023-01-02] MEDS ORDERED: POLYETHYLENE GLYCOL POWDER 17 GM PACK PO PRN (18:17)
[2023-01-02] MEDS ORDERED: CALCIUM CARBONATE CHEW 500 MG TABLET PO PRN (18:18)
[2023-01-02] MEDS ORDERED: POLYETHYLENE GLYCOL POWDER 17 GM PACK PO ONE (18:18)
[2023-01-03] MEDS: ZALEPLON 5 MG CAPSULE PO PRN ×2 (00:32→20:57)
[2023-01-03 05:15] LABS: Hematocrit 29.8 VOL% (42.0-52.0); Hemoglobin 9.8 GM/DL (14.0-18.0); Immature Granulocytes % 0.2 %; Immature Granulocytes Absolute 0.01 #; Lymphocytes # 0.2 10*3/uL (1.4-4.0); Lymphocytes % 3.5 % (21.2-54.2); Mean Corpuscular HGB Conc 32.9 GM/DL (32-36); Mean Corpuscular Volume 86.1 FL (87-102); Mean Platelet Volume 7.9 FL (9.6-12.0); Monocytes # 0.6 10*3/uL (0.11-0.8); Neutrophils % 84.3 % (38.7-73.9); Platelet Count 244 T/CUMM (130-400); Red Blood Count 3.46 MC/CUMM (3.8-5.5); Red Cell Distribution Width 16.6 % (9.3-17.3); White Blood Count 5.16 T/CUMM (4-12)
[2023-01-03 05:42] LABS: Hypochromia Slight; Lymphocytes 5 % (20-55); Microcytosis Slight; Platelet Estimate Adequate; Total Cells Counted 100
[2023-01-03 05:58] LABS: Calcium 8.6 MG/DL (8.5-10.1); Osmolality,Calculated 253.1 MOS/KG (273-304); Potassium 3.7 MMOL/L (3.5-5.1)
[2023-01-03] MEDS ORDERED: MAGNESIUM SULF RIDER 2 GM/50 ML PREMIX IV ONE (08:03)
[2023-01-03] MEDS: HEPARIN 5,000 UNIT/1 ML VIAL SUBCUT SCH ×2 (08:58→20:56)
[2023-01-03] MEDS: PANTOPRAZOLE 40 MG VIAL IV SCH ×2 (08:58→21:37)
[2023-01-03] MEDS: LACTATED RINGERS 1,000 ML IV SCH (11:27)
[2023-01-03] MEDS: SODIUM CHLORIDE 0.9% 1,000 ML IV SCH ×2 (13:13→22:33)
[2023-01-03] MEDS: NICOTINE 21 MG/24 HR PATCH TRANSDERM PRN (13:13)
[2023-01-04 05:00] LABS: Basophils % 0.4 % (0.0-0.8); Eosinophils # 0.1 10*3/uL (0.0-0.87); Eosinophils % 1.5 % (0.00-10.9); Hematocrit 30.5 VOL% (42.0-52.0); Hemoglobin 10.1 GM/DL (14.0-18.0); Immature Granulocytes % 0.4 %; Immature Granulocytes Absolute 0.02 #; Lymphocytes # 0.3 10*3/uL (1.4-4.0); Lymphocytes % 4.7 % (21.2-54.2); Mean Corpuscular HGB Conc 33.1 GM/DL (32-36); Mean Corpuscular Volume 86.6 FL (87-102); Mean Platelet Volume 8.1 FL (9.6-12.0); Monocytes # 0.6 10*3/uL (0.11-0.8); Monocytes % 10.2 % (1.7-12.7); Neutrophils % 82.8 % (38.7-73.9); Platelet Count 245 T/CUMM (130-400); Red Blood Count 3.52 MC/CUMM (3.8-5.5); Red Cell Distribution Width 17.1 % (9.3-17.3); White Blood Count 5.37 T/CUMM (4-12)
[2023-01-04 05:16] LABS: Calcium 8.6 MG/DL (8.5-10.1); Osmolality,Calculated 252.1 MOS/KG (273-304)
[2023-01-04 05:30] LABS: Eosinophils 1 % (0-10); Lymphocytes 5 % (20-55); Platelet Estimate Adequate; Total Cells Counted 100
[2023-01-04] MEDS ORDERED: MAGNESIUM SULF RIDER 4 GM/100 ML PREMIX IV ONE (08:02)
[2023-01-04] MEDS: LACTATED RINGERS 1,000 ML IV SCH (08:37)
[2023-01-04] MEDS: PANTOPRAZOLE 40 MG VIAL IV SCH (08:42)
[2023-01-04] MEDS: HEPARIN 5,000 UNIT/1 ML VIAL SUBCUT SCH (08:50)
[2023-01-04 11:48] VITALS: BP 118/62
== END 2023-01-04 11:57 | disposition home or self-care (01) | DRG 243 ==
LOC: N.ED 11:29 → N.TELES 11:29 → SUATTDRO 19:19 → N.TELES 22:17 → SUATTDRO 01-01 10:09
PROVIDERS: ADMIT Emergency Medicine; ATTEND Family Medicine
PROC: EGDWPEG (ICD-10-PCS; 2023-01-02 08:20)